=== PATIENT | male | born 1970 | race African-American/Black ===

== ENCOUNTER 2025-01-25 22:24 | Emergency (ER) | payer SELFPAY ==
[2025-01-25 22:26] VITALS: BP 164/100
--- NOTE | 2025-01-25 22:45 | ED.MUSCINJ ---
HPI-Injury
<Mendel Morales MD, Resident - Last Filed: 01/26/25 00:00>
General
Chief Complaint: Musculo-Skeletal Complaint
Source: patient and family
Time Seen by Provider: 01/25/25 22:38
History of Present Illness-Injury
Is this injury a work related problem?: No
Is pt an associate of [facility]?: No
Initial Injury comments:
54-year-old male with a history of hypertension, and jug-[id number]-atnrzrljk diabetes comes to the ED due to recent history of right upper forearm pain. Patient was try to lift his desk and ended up 'feeling some pops' around his upper forearm. At
the time he thought it was due to tearing his biceps. This happened around 10 PM and it did not hurt immediately, but pain followed and he decided to come to the ED due to the pain. He has no fever or chills, and has significant tenderness in his
right upper forearm. His difficulty squeezing with his right hand, pronation of the hand is impaired and he has difficulty flexing his arm as well.
Past History
<Mendel Morales MD, Resident - Last Filed: 01/26/25 00:00>
Past History
ED Past Medical History: HTN and NIDDM
ED Past Surgical History: None
Review of Systems
<Mendel Morales MD, Resident - Last Filed: 01/26/25 00:00>
Review of Systems
All Other Systems: ROS reviewed and negative except as documented in HPI and ROS
Musculoskeletal Injury Exam
<Mendel Morales MD, Resident - Last Filed: 01/26/25 00:00>
Musculoskeletal Injury Exam
Right Arm:
Pain with Movement?: Moderate
Tender to palpation?: Moderate
Soft tissue swelling?: Moderate
External deformity and angulation?: None
Joint effusion?: None
Contusion?: None
Hematoma-local bleeding into tissue?: None
Strain- Sprain- Tear (Connective tissue injury)?: Moderate
Crepitus with movement?: No
Joint instability?: No
Malalignment/deformity?: No
Range of motion: Limited
Distal skin color and temperature: normal-warm & good color
Capillary Refill: normal
Normal distal neurovascular exam?: Yes
Peripheral Pulses: radial (right): 2+
Phy Exam
<Mendel Morales MD, Resident - Last Filed: 01/26/25 00:00>
General Physical Exam
General Presentation: moderate distress
General Skin: warm and dry
General Habitus: normal
General Mental: anxious
General Hydration: appears well hydrated
Injury Course
<Mendel Morales MD, Resident - Last Filed: 01/26/25 00:00>
Orders/Labs/Results
Orders:
Orders
01/25/25 22:45
CR Forearm - Right 2 View Urgent
Comment:
Reason For Exam: right upper forearm pain
01/25/25 23:24
Sling Right-Treatment ONCE
Ibuprofen [Motrin] 600 mg PO NOW STA
01/25/25 23:39
Oxycodone/Acetaminophen [Percocet 5/325] 1 tablet PO NOW STA
<Niko Vang, DO - Last Filed: 01/25/25 23:32>
Orders/Labs/Results
Orders:
Orders
01/25/25 22:45
CR Forearm - Right 2 View Urgent
Comment:
Reason For Exam: right upper forearm pain
01/25/25 23:24
Sling Right-Treatment ONCE
Ibuprofen [Motrin] 600 mg PO NOW STA
01/25/25 23:39
Oxycodone/Acetaminophen [Percocet 5/325] 1 tablet PO NOW STA
<Mendel Morales MD, Resident - Last Filed: 01/26/25 00:00>
MDM/Problems Addressed
Differential Diagnosis Includes:
Right Brachioradialis Tendon Tear
MDM/Problems Addressed:
54 year old male with a past medical history of hypertension and NIDDM comes to the ED due to Right upper forearm pain.
As per physical exam, patient most likely has a right brachioradialis tendon tear as he has difficulty with pronation of the right hand, difficulty with gripping, moderate tenderness, erythema and swelling around the upper forearm.
Will get X-ray of Right Forearm to check for any acute fracture
X-Ray did not show any acute dislocation/Fracture
Will give some Motrin to help with the pain
Will stabilize arm and patient will have to follow up with Ortho for further follow up regarding tear
He is visiting from [place] so will have to follow up with Ortho over there. Will provide information about Orthopedic Doctor in [place]
Will give short supply of strong pain medication to help with his pain (Oxycodone)
<Mendel Morales MD, Resident - Last Filed: 01/26/25 00:00>
*Pulse Oximetry
SaO2: 98
Oxygen Mode of Delivery: Room air
Patient hypoxic: no
*Critical Care Note
Total Time (30-74mins, 75-104mins- exclusive of procedures): Not Applicable
ED Attending Note
<Mendel Morales MD, Resident - Last Filed: 01/26/25 00:00>
-
Portions of this chart may have been created with voice recognition software.� Occasional wrong word or��sound alike� substitutions may have occurred due to the inherent limitations of voice recognition software.
<Niko Vang, DO - Last Filed: 01/25/25 23:32>
ED Attending Note
Patient seen and examined by attending physician: Yes
I performed a history and physical exam of patient and discussed management with resident, I reviewed resident's note and agree with documented findings and plan of care.: Yes
ED Attending Note:
Seen with resident examined independently 54-year-old male btzyn-[id number]-[id number] pain just proximal to the right elbow after lifting a heavy object
Looks like he has a strain or tear of the brachial radialis x-rays noted he lives in [place] given number for an orthopedist so I know there or he can follow-up with an orthopedist of his choosing
Discharge Plan
Departure
Patient Disposition: Home (Routine Discharge)
Date of Disposition: 01/25/25
Time of Disposition: 23:56
Patient with high blood pressure during this ER visit?: No
Condition: Good
Covid-19: Not Applicable
Discharge Problem:
Brachioradialis muscle tenderness
Instructions: Muscle Strain (DC), Sprain (DC), Ibuprofen, Using Cold for Pain
Prescriptions:
New
ibuprofen 800 mg tablet
800 mg PO Q8H PRN (Reason: Pain) Qty: 20 0RF
oxycodone-acetaminophen [Percocet] 5-325 mg tablet
1 tab PO Q6HPRN PRN (Reason: pain) Qty: 7 0RF
Activity Restrictions/Additional Instructions:
Rest ice, use sling, ibuprofen every 6-8 hours for pain and inflammation
Follow-up with Dr. Sukumar Koch-at [facility] or another orthopedist of your liking
Interventions
Interventions:
*Risk Screen - Suicide Last Done: 01/25/25 22:26
*Neglect/Abuse Screening Last Done: 01/25/25 22:26
ED-Musculoskeletal Assessment Last Done: 01/25/25 23:50
Discharge Date and Time
Print Language: ROMANIAN
[2025-01-25 23:44] VITALS: BMI 28.5
[2025-01-25] MEDS: PERCOCET 5/325 1 TABLET PO (23:46)
[2025-01-26 00:24] VITALS: BP 167/90
== END 2025-01-26 00:26 | disposition home or self-care (01) ==
LOC: EMR 22:24
PROVIDERS: EMERGENCY PHYSICIAN Emergency Medicine
DX: M79.631 Pain in right forearm (principal); E11.9 Type 2 diabetes mellitus without complications; I10 Essential (primary) hypertension
CPT/HCPCS: 99283; 73090